=== PATIENT | female | born 1985 | race Caucasian/White ===

== ENCOUNTER 2017-09-14 20:05 | Emergency (ER) | payer MEDICAID ==
[~2017-09-14] VITALS: Ht 165.1 cm; Wt 64.0 kg
[2017-09-14 23:45] VITALS: BP 105/65
== END 2017-09-14 23:45 | disposition home or self-care (01) ==
LOC: ED 20:05
DX: R07.89 Other chest pain (principal); M54.2 Cervicalgia
CPT/HCPCS: J1885; Q0092

== ENCOUNTER 2018-02-11 20:13 | Emergency (ER) | payer MEDICAID ==
[~2018-02-11] VITALS: Ht 160 cm; Wt 63.0 kg
[2018-02-11 20:58] VITALS: Ht 160 cm; Wt 63.0 kg
[2018-02-11 22:31] VITALS: BP 108/69
== END 2018-02-11 22:31 | disposition home or self-care (01) ==
LOC: ED 20:13
DX: L25.9 Unspecified contact dermatitis, unspecified cause (principal); W57.XXXA Bitten or stung by nonvenomous insect and other nonvenomous arthropods, initial encounter; Y93.89 Activity, other specified; Y92.89 Other specified places as the place of occurrence of the external cause; Y99.8 Other external cause status
CPT/HCPCS: J1100

== ENCOUNTER 2018-04-29 20:05 | Emergency (ER) | payer MEDICAID ==
[~2018-04-29] VITALS: Ht 160 cm; Wt 61.2 kg
[2018-04-29 20:19] VITALS: Ht 160 cm; Wt 61.2 kg
[2018-04-29 20:47] VITALS: BP 124/78
== END 2018-04-29 20:46 | disposition home or self-care (01) ==
LOC: ED 20:05
DX: K08.9 Disorder of teeth and supporting structures, unspecified (principal)